=== PATIENT | female | born 1990 | race Caucasian/White ===

== ENCOUNTER 2016-07-06 09:50 | Day surgery (SDC) | payer OTHER ==
[2016-07-05 14:35] LABS: HEMOGLOBIN 14.9 g/dL (11.7-16.4)
[~2016-07-06] VITALS: Ht 175.3 cm; Wt 75.0 kg
[~2016-07-06 09:50] MED LIST: IBUP-1222 PO; IBUP800T PO; LEVONORGESTREL VG; NORE1TAB11 PO; OXYC-302 PO; OXYC1TAB7 PO; PREN1TAB60 PO; SENN1TAB5 PO; wellbutrin PO
[2016-07-06] MEDS ORDERED: LACTATED RINGERS 1,000 ML IV SCH (10:11)
[2016-07-06 10:14] VITALS: BP 113/70
[2016-07-06 10:21] LABS: HCG UR OBC PASS
[2016-07-06] MEDS ORDERED: BUPIVACAINE/PF-EPI 0.25% 1:200K ONE (10:36)
[2016-07-06] MEDS ORDERED: FENTANYL PF 250 MCG/5ML ONE (11:19)
[2016-07-06] MEDS ORDERED: MIDAZOLAM 1 MG/ML, 2ML ONE (11:19)
[2016-07-06] MEDS ORDERED: PROPOFOL 10 MG/ML, 20ML ONE (12:35)
[2016-07-06] MEDS ORDERED: GLYCOPYRROLATE 0.2MG/1ML ONE (12:35)
[2016-07-06] MEDS ORDERED: DEXAMETHASONE 4 MG/ML, 1ML ONE (12:35)
[2016-07-06] MEDS ORDERED: ONDANSETRON 2MG/ML, 2ML ONE ×2 (12:35→15:49)
[2016-07-06] MEDS ORDERED: CEFAZOLIN 1,000 MG ONE (12:35)
[2016-07-06] MEDS ORDERED: ROCURONIUM 10 MG/ML ONE (12:35)
[2016-07-06] MEDS ORDERED: NEOSTIGMINE 1 MG/ML, 10ML ONE (12:35)
[2016-07-06] MEDS ORDERED: PROMETHAZINE 25 MG/ML, 1ML IV PRN (13:30)
[2016-07-06] MEDS ORDERED: ONDANSETRON 2MG/ML, 2ML IVPush PRN ×2 (13:30→16:00)
[2016-07-06] MEDS ORDERED: HYDROmorphone 1 MG/ML, 1ML IV PRN (13:30)
[2016-07-06] MEDS ORDERED: ACETAMINOPHEN 325 MG TABLET PO PRN (13:30)
[2016-07-06] MEDS ORDERED: MEPERIDINE/PF 25MG/0.5ML IVPush PRN (13:30)
[2016-07-06] MEDS ORDERED: OXYcodone 5 MG/5 ML ORAL.SOL UDC PO PRN (13:30)
[2016-07-06] MEDS ORDERED: FENTANYL PF 100 MCG/2ML ONE (13:38)
[2016-07-06] MEDS ORDERED: ACETAMINOPHEN 325 MG TABLET ONE (13:39)
[2016-07-06] MEDS ORDERED: OXYcodone 5 MG/5 ML ORAL.SOL UDC ONE (13:39)
[2016-07-06] MEDS: FENTANYL PF 100 MCG/2ML IV PRN ×2 (13:45→13:56)
[2016-07-06] MEDS ORDERED: HYDROmorphone PCA 30 MG/30 ML ONE (14:27)
[2016-07-06] MEDS ORDERED: HYDROmorphone 2 MG/ML, 1ML ONE (14:27)
== END 2016-07-06 17:45 ==
LOC: OUT 09:50
PROVIDERS: ATTEND Obstetrics & Gynecology
DX: N80.9 Endometriosis, unspecified (principal); G89.29 Other chronic pain; R10.2 Pelvic and perineal pain
CPT/HCPCS: 36415; 58662; 71020; 81025; 84703; 85025; J0690; J1100; J1170; J2250; J2405; J2704; J2710; J3010; J7120; J3490

== ENCOUNTER 2017-02-01 06:29 | Day surgery (SDC) | payer OTHER ==
[2017-01-30 09:27] VITALS: BP 102/66
[2017-01-30 10:02] LABS: HEMATOCRIT 45.8 % (34.6-47.8); HEMOGLOBIN 15.7 g/dL (11.7-16.4)
[~2017-02-01] VITALS: Ht 175.3 cm; Wt 70.0 kg
[~2017-02-01 06:29] MED LIST changes: +IBUP-1223 PO; -IBUP800T PO; +SENN-52 PO; -SENN1TAB5 PO
[2017-02-01] MEDS ORDERED: BUPIVACAINE/PF 0.25% ONE (06:36)
[2017-02-01] MEDS ORDERED: EPINEPHRINE 1 MG/ML, 1ML ONE (06:37)
[2017-02-01] MEDS ORDERED: FLUORESCEIN SODIUM 500 MG/5 ML ONE (06:37)
[2017-02-01] MEDS ORDERED: LACTATED RINGERS 1,000 ML IV SCH (07:17)
[2017-02-01] MEDS ORDERED: LIDOCAINE 1%, 2ML SQ PRN (07:30)
[2017-02-01] MEDS ORDERED: FENTANYL PF 100 MCG/2ML ONE ×4 (07:37→10:15)
[2017-02-01] MEDS ORDERED: MIDAZOLAM 1 MG/ML, 2ML ONE (07:37)
[2017-02-01] MEDS ORDERED: CEFAZOLIN 1,000 MG ONE ×2 (07:39)
[2017-02-01] MEDS ORDERED: PROPOFOL 10 MG/ML, 20ML ONE (07:39)
[2017-02-01] MEDS ORDERED: GLYCOPYRROLATE 0.4 MG/2 ML, 2ML ONE (07:41)
[2017-02-01] MEDS ORDERED: NEOSTIGMINE 1 MG/ML, 10ML ONE (07:41)
[2017-02-01] MEDS ORDERED: ONDANSETRON 2MG/ML, 2ML ONE (07:42)
[2017-02-01] MEDS ORDERED: DEXAMETHASONE 4 MG/ML, 1ML ONE ×2 (07:42)
[2017-02-01] MEDS ORDERED: ROCURONIUM 10 MG/ML ONE (08:24)
[2017-02-01] MEDS ORDERED: FENTANYL PF 100 MCG/2ML IV PRN (08:30)
[2017-02-01] MEDS ORDERED: ONDANSETRON 2MG/ML, 2ML IVPush PRN (08:30)
[2017-02-01] MEDS ORDERED: ALBUTEROL SULFATE 2.5 MG/3 ML NPPB PRN (08:30)
[2017-02-01] MEDS ORDERED: ACETAMINOPHEN 325 MG TABLET PO PRN (08:30)
[2017-02-01] MEDS ORDERED: MEPERIDINE/PF 25MG/0.5ML IVPush PRN (08:30)
[2017-02-01] MEDS ORDERED: OXYcodone 5 MG/5 ML ORAL.SOL UDC PO PRN (08:30)
[2017-02-01] MEDS ORDERED: PROMETHAZINE 25 MG/ML, 1ML IV PRN (08:30)
[2017-02-01] MEDS ORDERED: HYDROmorphone 2 MG/ML, 1ML ONE (10:48)
[2017-02-01] MEDS ORDERED: OXYcodone 5 MG/5 ML ORAL.SOL UDC ONE (10:48)
[2017-02-01] MEDS ORDERED: ACETAMINOPHEN 650 MG/20.3 ML UDC ONE (10:48)
[2017-02-01] MEDS: HYDROmorphone 1 MG/ML, 1ML IV PRN ×4 (10:51→11:37)
[2017-02-01 13:26] LABS: HEMATOCRIT 41.1 % (34.6-47.8); HEMOGLOBIN 14.1 g/dL (11.7-16.4); WHITE BLOOD COUNT 16.4 x10^3/uL (3.4-10)
== END 2017-02-01 15:10 ==
LOC: OUT 06:29
PROVIDERS: ATTEND Obstetrics & Gynecology
DX: N30.10 Interstitial cystitis (chronic) without hematuria (principal); N80.3 Endometriosis of pelvic peritoneum
CPT/HCPCS: 36415; 58552; 71020; 84703; 85025; 88307; J0171; J0690; J1100; J1170; J2250; J2405; J2704; J2710; J3010; J3490; J7120

== ENCOUNTER 2018-05-02 20:03 | Emergency (ER) | payer OTHER ==
[~2018-05-02] VITALS: Ht 177.8 cm; Wt 76.2 kg
--- NOTE | 2018-05-02 20:32 | NUR ---
PT INSTRUCTED TO PROVIDE URINE SAMPLE, PT TO BATHROOM WITH STEADY GAIT.
[2018-05-02 20:49] LABS: BASOPHILS # (AUTO) 0.06 x10^3/uL (0-0.1); BASOPHILS % (AUTO) 1 % (0-1); EOSINOPHILS # (AUTO) 0.13 x10^3/uL (0-0.4); EOSINOPHILS % (AUTO) 1 % (1-7); LYMPHOCYTES # (AUTO) 3.02 x10^3/uL (1-3.4); LYMPHOCYTES % (AUTO) 30 % (22-44); MD NO; MEAN CORPUSCULAR HEMOGLOBIN 32.4 pg (27.0-34.8); MEAN CORPUSCULAR HGB CONC 35.2 g/dL (32.4-35.8); MEAN CORPUSCULAR VOLUME 92.1 fL (80-100); MEAN PLATELET VOLUME 8.6 fL (7.4-10.4); MONOCYTES # (AUTO) 0.79 x10^3/uL (0.2-0.8); MONOCYTES % (AUTO) 8 % (2-9); NEUTROPHILS # (AUTO) 6.02 x10^3/uL (1.8-6.8); NEUTROPHILS % (AUTO) 60 % (42-75); PLATELET COUNT 282 x10^3/uL (130-400); RED BLOOD COUNT 4.79 x10^6/uL (3.82-5.3); RED CELL DISTRIBUTION WIDTH 12.6 % (9.6-15.2)
--- NOTE | 2018-05-02 20:50 | NUR ---
PT PRESENTS TO ED WITH LEFT LOWER QUAD PAIN X 1 DAY. PT DENIES VOMITING/DIARRHEA/FEVERS. PT DENIES VAG BLEEDING/DISCHARGE/CRAMPING. BP AND SPO2 MONITORS IN PLACE. CALL LIGHT IN REACH. AWAITING US AND DISPO.
[2018-05-02 20:58] LABS: ALBUMIN 3.9 g/dL (3.4-5.0); ANION GAP 7 mmol/L (5-15); CALCIUM 8.3 mg/dL (8.5-10.1); CHLORIDE 109 mmol/L (98-107); CREATININE 0.94 mg/dL (0.55-1.02)
[2018-05-02] MEDS ORDERED: ONDANSETRON 2MG/ML, 2ML IVPush ONE (21:00)
[2018-05-02] MEDS ORDERED: MORPHINE SULFATE 4 MG/ML, 1ML IVPush PRN (21:00)
[2018-05-02 21:03] LABS: MICROSCOPIC NOT IND
[2018-05-02] MEDS ORDERED: MORPHINE SULFATE 4 MG/ML, 1ML ONE (21:10)
[2018-05-02] MEDS ORDERED: ONDANSETRON 2MG/ML, 2ML ONE (21:10)
[2018-05-02 21:11] LABS: CULTURE INDICATED? NO
--- NOTE | 2018-05-02 21:14 | NUR ---
PT BACK TO ROOM FROM US.
--- NOTE | 2018-05-02 21:26 | NUR ---
PT MEDICATED PER EMAR. PT TOLERATED WELL. PT AOX4. RESPS EVEN AND UNLABORED.
--- NOTE | 2018-05-02 21:49 | NUR ---
PAIN LEVEL REDUCES 4/10 AT THIS TIME. PT AOX4. RESPS EVEN AND UNLABORED. CALL LIGHT WITHIN REACH.
[2018-05-02 22:52] VITALS: BP 102/53
--- NOTE | 2018-05-02 22:55 | NUR ---
pt given dc instruction and script. pt educated regarding dc medication which is zofran. pt aox4. resps even and unlabored. pt amb to dc with steady gait. no acute distress at dc. pt states pain level reduced at dc. pt educated not to drive due to pain med given. pt's mother to drive home.
== END 2018-05-02 22:55 | disposition home or self-care (01) ==
LOC: ED 22:49
DX: R10.32 Left lower quadrant pain (principal); R11.0 Nausea
CPT/HCPCS: 36415; 76830; 80048; 81003; 82040; 85025; 96374; 96375; 99284; J2405

== ENCOUNTER 2019-08-21 17:39 | Emergency (ER) | payer OTHER ==
[~2019-08-21] VITALS: Ht 172.7 cm; Wt 80.0 kg
[2019-08-21] MEDS ORDERED: DIAZEPAM 5 MG TABLET PO ONE (18:30)
[2019-08-21] MEDS ORDERED: DIAZEPAM 5 MG TABLET ONE (18:31)
--- NOTE | 2019-08-21 18:37 | NUR ---
PT MEDICATED PER EBENEZER, BS 81. PT RESTING IN [facility]
--- NOTE | 2019-08-21 18:48 | NUR ---
REPORT RECEIVED FROM TORIN LOPEZ.
[2019-08-21] MEDS ORDERED: KETOROLAC 60 MG/2 ML ONE (19:43)
[2019-08-21] MEDS ORDERED: KETOROLAC 30 MG/1 ML IM ONE (20:00)
[2019-08-21 20:30] VITALS: BP 117/94
[2019-08-21] MEDS ORDERED: PROMETHAZINE 25 MG/ML, 1ML IM STA (20:30)
--- NOTE | 2019-08-21 20:30 | NUR ---
PT REPORTS MINIMAL RELIEF FROM MEDICATIONS. MD IN ROOM TO REEVAL PT.
[2019-08-21] MEDS ORDERED: PROMETHAZINE 25 MG/ML, 1ML ONE (20:31)
== END 2019-08-21 20:51 | disposition home or self-care (01) ==
LOC: ED 20:15
DX: G44.219 Episodic tension-type headache, not intractable (principal); H53.8 Other visual disturbances
CPT/HCPCS: 82962; 96372; 99284; J1885; J2550

== ENCOUNTER 2019-09-17 13:01 | Emergency (ER) | payer SELFPAY ==
[~2019-09-17] VITALS: Ht 172.7 cm; Wt 77.0 kg
--- NOTE | 2019-09-17 13:27 | NUR ---
pt presents to ED with c/o constant sternal chest pain onset 3 days ago, with intermittent dizziness. pain is worse with inspiration and palpation, pt has exquisite tenderness to sternum upon palpation. pt is a&ox4, neuro intact, nsr on rn surgical with no ectopy. EKG taken on arrival in triage, reviewed by MANUELA Camarillo. EDMD at bedside for initial assessment.
[2019-09-17] MEDS ORDERED: KETOROLAC 30 MG/1 ML IM ONE (13:30)
[2019-09-17] MEDS ORDERED: KETOROLAC 30 MG/1 ML ONE (13:33)
[2019-09-17 14:02] LABS: BASOPHILS # (AUTO) 0.01 x10^3/uL (0-0.1); BASOPHILS % (AUTO) 0 % (0-1); EOSINOPHILS # (AUTO) 0.05 x10^3/uL (0-0.4); EOSINOPHILS % (AUTO) 1 % (1-7); LYMPHOCYTES % (AUTO) 36 % (22-44); MD NO; MEAN CORPUSCULAR HEMOGLOBIN 31.9 pg (27.0-34.8); MEAN CORPUSCULAR HGB CONC 34.6 g/dL (32.4-35.8); MEAN CORPUSCULAR VOLUME 92.3 fL (80-100); MEAN PLATELET VOLUME 8.5 fL (7.4-10.4); MONOCYTES # (AUTO) 0.41 x10^3/uL (0.2-0.8); MONOCYTES % (AUTO) 9 % (2-9); NEUTROPHILS % (AUTO) 55 % (42-75); PLATELET COUNT 236 x10^3/uL (130-400); RED BLOOD COUNT 4.62 x10^6/uL (3.82-5.3); RED CELL DISTRIBUTION WIDTH 11.8 % (9.6-15.2)
[2019-09-17 14:13] LABS: CALCIUM 8.5 mg/dL (8.5-10.1); CHLORIDE 109 mmol/L (98-107)
[2019-09-17] MEDS ORDERED: LAMO100T5 PO (14:20)
[2019-09-17] MEDS ORDERED: biotin PO (14:20)
[2019-09-17] MEDS ORDERED: IBUP-1223 PO (14:20)
[2019-09-17] MEDS ORDERED: ACET-1600 PO (14:20)
[2019-09-17 14:21] LABS: ALANINE AMINOTRANSFERASE 14 U/L (12-78); ALBUMIN 3.9 g/dL (3.4-5.0); ALKALINE PHOSPHATASE 46 U/L (45-117); ANION GAP 6 mmol/L (5-15); BILIRUBIN,TOTAL 0.6 mg/dL (0.2-1.0); CREATININE 0.88 mg/dL (0.55-1.02); TOTAL PROTEIN 7.3 g/dL (6.4-8.2); TROPONIN I < 0.015 ng/mL (0.000-0.045)
--- NOTE | 2019-09-17 14:21 | NUR ---
pt resting on gurney, resps even and unlabored. pt a&o. pt states chest pain 5/10 at this time, no other complalints. nsr on ekg monitor with no ectopy noted. awaiting lab results and dispo.
[2019-09-17 14:55] VITALS: BP 105/66
--- NOTE | 2019-09-17 14:57 | NUR ---
Pt given dc instructions and script, educated regarding rx for naproxen, flexiril and lidoderm patches. pt a&o, resps even and unlabored, nsr on classroom monitor, no ectopy noted. pt has no complaint at dc. pt ambulatory to dc desk with steady gait, all questions answered.
--- NOTE | 2019-09-17 15:08 | NUR ---
PT LEFT VICE ADMIRAL IN ROOM, ITEM BAGGED, LABELED AND LEFT WITH ASSEMBLY AND PACKING SUPERVISOR FOR LOST AND FOUND.
== END 2019-09-17 14:56 | disposition home or self-care (01) ==
LOC: ED 14:35
DX: R07.89 Other chest pain (principal); R94.31 Abnormal electrocardiogram [ECG] [EKG]; F17.200 Nicotine dependence, unspecified, uncomplicated; Z90.710 Acquired absence of both cervix and uterus; Z90.49 Acquired absence of other specified parts of digestive tract
CPT/HCPCS: 36415; 71045; 80053; 83690; 84484; 85025; 85379; 93005; 96372; 99285; J1885

== ENCOUNTER 2019-12-28 16:13 | Emergency (ER) | payer OTHER ==
[~2019-12-28] VITALS: Ht 172.7 cm; Wt 85.8 kg
[~2019-12-28 16:13] MED LIST changes: +ACET-1600 PO; +LAMO100T5 PO; +biotin PO
--- NOTE | 2019-12-28 17:07 | NUR ---
UA COLLECTED AND SENT
--- NOTE | 2019-12-28 17:08 | NUR ---
THIS IS A 29 YO FEMALE COMING IN FOR PERIUMBILICAL AND BILATERAL LOWER QUADRANT ABD PAIN/CRAMPING/DISTENTION WORSENING SINCE SUNDAY WITH MILD NAUSEA. HX INTERSTITIAL CYSTITIS 4 YEARS AGO, STATES "I COULDN'T AFFORD THE MEDICATIONS THEY WANTED TO PUT ME ON BACK THEN, SO I DON'T KNOW IF THIS IS THE SAME THING OR NOT". PT REPORTS DYSURIA WELL. A&OX4, VSS, NADN AT THIS TIME. CALL LIGHT IN REACH
[2019-12-28] MEDS ORDERED: HYDROmorphone 1 MG/ML, 1ML INJ ONE (17:13)
[2019-12-28] MEDS ORDERED: ONDANSETRON 2MG/ML, 2ML ONE (17:13)
[2019-12-28 17:14] LABS: MICROSCOPIC NOT IND
[2019-12-28 17:20] LABS: BASOPHILS # (AUTO) 0.08 x10^3/uL (0-0.1); BASOPHILS % (AUTO) 1 % (0-1); EOSINOPHILS # (AUTO) 0.02 x10^3/uL (0-0.4); EOSINOPHILS % (AUTO) 0 % (1-7); LYMPHOCYTES # (AUTO) 2.43 x10^3/uL (1-3.4); LYMPHOCYTES % (AUTO) 28 % (22-44); MD NO; MEAN CORPUSCULAR HEMOGLOBIN 31.2 pg (27.0-34.8); MEAN CORPUSCULAR HGB CONC 34.7 g/dL (32.4-35.8); MEAN PLATELET VOLUME 7.9 fL (7.4-10.4); MONOCYTES # (AUTO) 0.63 x10^3/uL (0.2-0.8); MONOCYTES % (AUTO) 7 % (2-9); NEUTROPHILS % (AUTO) 63 % (42-75); PLATELET COUNT 235 x10^3/uL (130-400); RED BLOOD COUNT 4.61 x10^6/uL (3.82-5.3); RED CELL DISTRIBUTION WIDTH 12.2 % (9.6-15.2)
--- NOTE | 2019-12-28 17:24 | NUR ---
PIV PLACED, MEDICATED PER EMAR
[2019-12-28 17:30] LABS: ALANINE AMINOTRANSFERASE 28 U/L (12-78); ALBUMIN 3.8 g/dL (3.4-5.0); ANION GAP 5 mmol/L (5-15); CALCIUM 8.9 mg/dL (8.5-10.1); CHLORIDE 107 mmol/L (98-107); CREATININE 0.92 mg/dL (0.55-1.02)
[2019-12-28] MEDS ORDERED: HYDROmorphone 2 MG/ML, 1ML IVPush PRN (17:30)
[2019-12-28] MEDS ORDERED: SODIUM CHLORIDE FLUSH 10ML SYR IVF ONE (17:30)
[2019-12-28] MEDS ORDERED: ONDANSETRON 2MG/ML, 2ML IVPush ONE (17:30)
[2019-12-28 17:35] LABS: ALKALINE PHOSPHATASE 54 U/L (45-117); BILIRUBIN,TOTAL 0.5 mg/dL (0.2-1.0); TOTAL PROTEIN 7.6 g/dL (6.4-8.2)
[2019-12-28 17:57] VITALS: BP 120/73
--- NOTE | 2019-12-28 18:00 | NUR ---
ERP IN ROOM FOR RE-EVAL
--- NOTE | 2019-12-28 18:20 | NUR ---
Patient given discharge instructions and they have confirmed that they understand the instructions. Patient ambulatory with steady gait.
== END 2019-12-28 18:22 | disposition home or self-care (01) ==
LOC: ED 17:10
DX: K59.00 Constipation, unspecified (principal); R10.31 Right lower quadrant pain; R10.32 Left lower quadrant pain; M54.5 Low back pain; Z90.49 Acquired absence of other specified parts of digestive tract; Z90.710 Acquired absence of both cervix and uterus; F17.210 Nicotine dependence, cigarettes, uncomplicated
CPT/HCPCS: 36415; 80053; 81003; 83690; 84703; 85025; 96374; 96375; 99284; J1170; J2405

== ENCOUNTER 2020-04-09 16:40 | Emergency (ER) | payer MEDICAID ==
[~2020-04-09] VITALS: Ht 172.7 cm; Wt 85.4 kg
[2020-04-09 18:36] VITALS: BP 113/68
== END 2020-04-09 18:38 | disposition home or self-care (01) ==
LOC: ED 17:19
DX: B34.9 Viral infection, unspecified (principal); Z20.828 Contact with and (suspected) exposure to other viral communicable diseases; R50.9 Fever, unspecified; R07.89 Other chest pain; J02.9 Acute pharyngitis, unspecified; R05 Cough; R51.9 Headache, unspecified; Z90.49 Acquired absence of other specified parts of digestive tract; Z90.710 Acquired absence of both cervix and uterus; Z87.891 Personal history of nicotine dependence
CPT/HCPCS: 71045; 87635; 93005; 99285

== ENCOUNTER 2020-05-26 13:14 | Emergency (ER) | payer MEDICAID ==
[~2020-05-26] VITALS: Ht 172.7 cm; Wt 78.5 kg
[~2020-05-26 13:14] MED LIST changes: -OXYC-302 PO; +OXYC1TAB14 PO
[2020-05-26 13:25] VITALS: BP 118/86
--- NOTE | 2020-05-26 14:08 | NUR ---
director behavioral health: pt from lobby to room 24
--- NOTE | 2020-05-26 14:12 | NUR ---
PT AMBULATED BACK TO ROOM WITHOUT DIFFICULTY.
--- NOTE | 2020-05-26 14:31 | NUR ---
PT REPORTS SHE IS HAVING A FLAREUP OF INTERSTITIAL CYSTITIS. STATES, "I'VE NEVER HAD IT GET THIS BAD. LAST TIME I WENT THEY INSTILLED MEDS INTO THE BLADDER." PT CAN'T AFFORD COPAY TO SEE UROLOGIST AT THIS TIME. PT REPORTS PAIN TO RLQ RADIATING TO BACK, 9/10 CURRENTLY.
[2020-05-26] MEDS ORDERED: ONDANSETRON ODT 4 MG PO ONE (16:30)
[2020-05-26] MEDS ORDERED: OXYcodone/APAP 5/325MG TABLET ONE (16:30)
[2020-05-26] MEDS ORDERED: OXYcodone/APAP 7.5/325MG TABLET PO ONE (16:30)
[2020-05-26] MEDS ORDERED: ONDANSETRON ODT 4 MG ONE (16:30)
[2020-05-26] MEDS ORDERED: OXYcodone/APAP 7.5/325MG TABLET ONE (16:35)
--- NOTE | 2020-05-26 16:46 | NUR ---
PT MEDICATED PER ORDERS. UNDERSTANDS POC. TALKING ON PHONE WITH FAMILY.
[2020-05-26 17:09] LABS: MICROSCOPIC NOT IND
== END 2020-05-26 17:38 | disposition home or self-care (01) ==
LOC: ED 17:32
DX: N30.20 Other chronic cystitis without hematuria (principal); Z90.710 Acquired absence of both cervix and uterus; Z90.49 Acquired absence of other specified parts of digestive tract; F17.200 Nicotine dependence, unspecified, uncomplicated
CPT/HCPCS: 81003; 99283; Q0162